=== PATIENT | male | born 1980 | race Caucasian/White ===

== ENCOUNTER 2016-07-13 20:44 | Emergency (ER) | payer OTHER ==
[~2016-07-13] VITALS: Ht 175.3 cm; Wt 75.7 kg
[2016-07-13] MEDS ORDERED: KETOROLAC 60 MG/2 ML IM ONE (21:30)
[2016-07-13] MEDS ORDERED: KETOROLAC 30 MG/1 ML ONE (22:40)
[2016-07-13 23:13] VITALS: BP 155/98
== END 2016-07-13 23:20 | disposition home or self-care (01) ==
LOC: ED 23:03
DX: I80.03 Phlebitis and thrombophlebitis of superficial vessels of lower extremities, bilateral (principal)
CPT/HCPCS: 36415; 85025; 93970; 96372; 99285; J1885